=== PATIENT | female | born 1935 | race Caucasian/White ===

== ENCOUNTER → 2017-04-07 | Outpatient (REF) | payer MEDICARE ==
[2017-04-07 14:01] LABS: PERCENT SATURATION 31.4 % (13.2-45.0)
== END ==
LOC: M LAB REF 13:24
PROVIDERS: ATTEND Internal Medicine Medical Oncology
DX: D64.9 Anemia, unspecified (principal)

== ENCOUNTER → 2017-04-07 | Outpatient (CLI) | payer MEDICARE ==
--- NOTE | 2017-04-07 11:19 | REP ---
Chest two views HISTORY: Aortic valve stenosis Comparison: None The lungs are clear. The heart is normal in size. The pulmonary vasculature is normal in appearance. Degenerative change is present in the spine. IMPRESSION: No acute disease. Signed by Raymond Ramirez MD 04/07/2017 11:10 A
--- NOTE | 2017-04-07 21:44 | ECGEPIP ---
Stationary ECG Study [facility] Test Date: 2017-04-07 Pat Name: BRODIE TANG Department: Room: - Gender: F Transportation Driver: DANIELE : 1935 Requested By: Genevieve Spicer Order Number: [id number] Reading MD: Ervin Olson Measurements Intervals [place] Rate: 69 P: 57 MO: 141 QRS: 67 QRSD: 93 T: 75 QT: 409 QTc: 441 Interpretive Statements SINUS RHYTHM NONSPECIFIC ST & T-WAVE ABNORMALITY NO PRIOR TRACING IN THE SYSTEM Electronically Signed On 04-07-2017 21:44:27 EDT by Ervin Olson
== END ==
LOC: M EKG 10:23
PROVIDERS: ATTEND Family Medicine
DX: I35.0 Nonrheumatic aortic (valve) stenosis (principal); I10 Essential (primary) hypertension; D46.9 Myelodysplastic syndrome, unspecified; R06.00 Dyspnea, unspecified; D64.9 Anemia, unspecified